=== PATIENT | female | born 1980 | race Caucasian/White ===

== ENCOUNTER 2017-12-26 17:31 | Outpatient (CLI) | payer BC, MEDICAID ==
[2017-12-26 19:46] LABS: RUPTURE FETAL MEMBRANES NEGATIVE (NEGATIVE)
== END 2017-12-26 20:10 | disposition home or self-care (01) ==
LOC: OBT 17:31 → L-D 17:32 → OBT 20:10
DX: O42.913 Preterm premature rupture of membranes, unspecified as to length of time between rupture and onset of labor, third trimester (principal); Z3A.31 31 weeks gestation of pregnancy
CPT/HCPCS: 76818; 84112

== ENCOUNTER 2018-02-21 10:34 | Inpatient (IN) | payer BC ==
[2018-02-21] MEDS: DEXTROSE 5%-LR 1,000 ML IV (11:58)
[2018-02-21] MEDS ORDERED: LIDOCAINE 1% (MPF) 30 ML INJ INJ (12:00)
[2018-02-21] MEDS ORDERED: BUTORPHANOL 2 MG INJ IV (12:00)
[2018-02-21] MEDS ORDERED: METHYLERGONOVINE 0.2 MG INJ IM ×2 (12:00→22:00)
[2018-02-21] MEDS ORDERED: CARBOPROST 250 MCG INJ IM ×2 (12:00→22:00)
[2018-02-21] MEDS ORDERED: MISOPROSTOL 200 MCG TAB PR ×2 (12:00→22:00)
[2018-02-21] MEDS ORDERED: IBUPROFEN 600 MG TAB PO (12:00)
[2018-02-21] MEDS ORDERED: OXYTOCIN 30 UNITS/LR 500 ML IV ×4 (12:00→22:00)
[2018-02-21 12:29] LABS: ADD MAN DIFF? NO
[2018-02-21 12:33] LABS: WHITE BLOOD COUNT 6.2 10^3/ul (4.8-10.8)
[2018-02-21 12:33] LABS: BASOPHILS % 0.5 % (0.0-2.0); EOSINOPHILS % 0.5 % (0.0-7.0); HEMATOCRIT 38.7 % (37.0-47.0); HEMOGLOBIN 13.2 g/dl (12.0-16.0); LYMPHOCYTES % 32.8 % (15.0-51.0); MEAN CORPUSCULAR HEMOGLOBIN 32.8 pg (29.0-33.0); MEAN CORPUSCULAR HGB CONC 34.1 g/dl (32.0-37.0); MEAN PLATELET VOLUME 11.9 fl (7.4-10.4); MONOCYTE # 0.6 10^3/ul (0.3-0.9); MONOCYTES % 9.9 % (0.0-11.0); NEUTROPHIL # 3.4 10^3/ul (1.6-7.5); NUCLEATED RED BLOOD CELLS% 0.5 /100WBC (0.0-0.0); PLATELET COUNT 190 10^3/UL (140-415); RED BLOOD COUNT 4.03 10^6/ul (4.20-5.40); RED CELL DISTRIBUTION WIDTH 13.2 % (11.5-14.5)
[2018-02-21 12:53] LABS: INR 0.79; PROTIME 11.1 Sec (11.9-14.9); PT RATIO 0.9
[2018-02-21 12:54] LABS: PARTIAL THROMBOPLASTIN TIME 29.5 Sec (23.0-35.0)
[2018-02-21 13:22] LABS: HEPATITIS B SURFACE ANTIGEN NEGATIVE (NEGATIVE)
[2018-02-21 15:11] LABS: RAPID PLASMA REAGIN NONREACTIVE (NR)
[2018-02-21] MEDS: LACTATED RINGER'S 1,000 ML IV ×2 (16:21→20:32)
[2018-02-21] MEDS ORDERED: CEFAZOLIN 2 GM/50 ML (PMX) 50 ML IVPB (16:30)
[2018-02-21] MEDS ORDERED: NALBUPHINE HCL (10 MG/1 ML) INJ IV (18:30)
[2018-02-21] MEDS ORDERED: DIPHENHYDRAMINE 50 MG INJ IV ×2 (18:30)
[2018-02-21] MEDS ORDERED: NALOXONE (0.4 MG/ML) INJ IV (18:30)
[2018-02-21] MEDS ORDERED: FENTAnyl 50 MCG/ML VIAL IV ×2 (18:30)
[2018-02-21] MEDS ORDERED: HYDROmorphONE 0.5 MG/0.5 ML SYG IV ×2 (18:30)
[2018-02-21] MEDS ORDERED: HYDROmorphONE 1 MG/5 ML IV SYRINGE IV ×3 (18:30)
[2018-02-21] MEDS ORDERED: KETOROLAC 30 MG INJ IV (18:30)
[2018-02-21] MEDS ORDERED: ZOLPIDEM 5 MG TAB PO (18:30)
[2018-02-21] MEDS ORDERED: ONDANSETRON 4 MG INJ IV ×2 (18:30)
[2018-02-21] MEDS: FAMOTIDINE 20 MG INJ IV (18:30)
[2018-02-21] MEDS ORDERED: CITRIC ACID/NA CITRATE 30 ML CUP (20:00)
[2018-02-21] MEDS: METOCLOPRAMIDE 10 MG INJ IV (20:31)
[2018-02-21] MEDS: ONDANSETRON 4 MG INJ IV (20:31)
[2018-02-21] MEDS ORDERED: morphine SULFATE/PF (10 MG/10 ML) INJ (20:53)
[2018-02-21] MEDS ORDERED: OXYTOCIN 10 UNIT INJ (21:23)
[2018-02-21] MEDS ORDERED: NACL 0.9% 3 ML SYG IV (22:00)
[2018-02-21] MEDS: OXYTOCIN 30 UNITS/LR 500 ML IV (23:01)
[2018-02-22] MEDS: OXYTOCIN 30 UNITS/LR 500 ML IV (00:24)
[2018-02-22] MEDS: CEFAZOLIN 2 GM/50 ML (PMX) 50 ML IVPB ×4 (03:11→19:46)
[2018-02-22 07:43] LABS: ADD MAN DIFF? NO
[2018-02-22 07:52] LABS: WHITE BLOOD COUNT 12.9 10^3/ul (4.8-10.8)
[2018-02-22 07:52] LABS: BASOPHILS % 0.2 % (0.0-2.0); EOSINOPHILS % 0.1 % (0.0-7.0); HEMATOCRIT 33.1 % (37.0-47.0); HEMOGLOBIN 11.8 g/dl (12.0-16.0); LYMPHOCYTES # 2.3 10^3/ul (0.8-2.9); LYMPHOCYTES % 17.7 % (15.0-51.0); MEAN CORPUSCULAR HEMOGLOBIN 33.7 pg (29.0-33.0); MEAN CORPUSCULAR HGB CONC 35.6 g/dl (32.0-37.0); MEAN CORPUSCULAR VOLUME 94.6 fl (82.0-101.0); MEAN PLATELET VOLUME 11.3 fl (7.4-10.4); MONOCYTE # 1.1 10^3/ul (0.3-0.9); MONOCYTES % 8.6 % (0.0-11.0); NEUTROPHIL # 9.4 10^3/ul (1.6-7.5); NEUTROPHILS % 72.8 % (39.0-77.0); PLATELET COUNT 172 10^3/UL (140-415)
[2018-02-22] MEDS: LACTATED RINGER'S 1,000 ML IV ×2 (11:56→21:18)
[2018-02-22] MEDS: KETOROLAC 30 MG INJ IV (18:00)
[2018-02-23] MEDS: IBUPROFEN 600 MG TAB PO ×4 (00:33→17:54)
[2018-02-24] MEDS: IBUPROFEN 600 MG TAB PO ×4 (00:15→17:40)
== END 2018-02-24 21:05 | disposition home or self-care (01) | DRG 787 ==
LOC: PP1 02-22 01:05 → OBT 10:34 → L-D 10:45
PROVIDERS: Obstetrics & Gynecology
PROC: 10D00Z1 Extraction of Products of Conception, Low, Open Approach (ICD-10-PCS; principal; 2018-02-21 20:45)
DX: O98.52 Other viral diseases complicating childbirth (principal); A92.5 Zika virus disease; O36.63X0 Maternal care for excessive fetal growth, third trimester, not applicable or unspecified; O76 Abnormality in fetal heart rate and rhythm complicating labor and delivery; O66.0 Obstructed labor due to shoulder dystocia; Z3A.39 39 weeks gestation of pregnancy; Z37.0 Single live birth
CPT/HCPCS: 76815; 76818; 85025; 85610; 85730; 86592; 86850; 86900; 86901; 87340; 88307; 99464

== ENCOUNTER 2018-10-18 09:31 | Day surgery (SDC) | payer BC ==
[2018-10-18] MEDS ORDERED: CEFAZOLIN 1 GM INJ (10:11)
[2018-10-18] MEDS ORDERED: LIDOCAINE 2% (SDV) 5 ML INJ (10:11)
[2018-10-18] MEDS ORDERED: PROPOFOL 20 ML (10:11)
[2018-10-18] MEDS ORDERED: FENTAnyl 50 MCG/ML VIAL (10:11)
[2018-10-18] MEDS: LACTATED RINGER'S 1,000 ML IV (10:30)
[2018-10-18] MEDS ORDERED: METOCLOPRAMIDE 10 MG INJ (11:32)
[2018-10-18] MEDS ORDERED: ONDANSETRON 4 MG INJ (11:32)
[2018-10-18] MEDS ORDERED: FAMOTIDINE 20 MG INJ (11:32)
[2018-10-18] MEDS ORDERED: DEXAMETHASONE 4 MG/ML 5 ML INJ (11:32)
[2018-10-18] MEDS ORDERED: NEOMYC/POLYMYX/BACIT 30 GM OINT (11:41)
[2018-10-18] MEDS: ROPIVACAINE 0.5 % 30 ML VIAL (11:46)
[2018-10-18] MEDS ORDERED: KETOROLAC 30 MG INJ (11:55)
[2018-10-18] MEDS ORDERED: HYDROmorphONE 1 MG/5 ML IV SYRINGE IV ×3 (12:00)
[2018-10-18] MEDS: KETOROLAC 30 MG INJ IV (12:00)
[2018-10-18] MEDS ORDERED: morphine 2 MG INJ IV (12:00)
[2018-10-18] MEDS ORDERED: ONDANSETRON 4 MG INJ IV (12:00)
[2018-10-18] MEDS ORDERED: MEPERIDINE 25 MG INJ IV (12:00)
[2018-10-18] MEDS ORDERED: OXYCODONE/ACETAMINOPHEN (5/325) TAB PO ×2 (12:00)
[2018-10-18] MEDS: POLYMYXIN/BACITRACIN 1L IRRIG IRR (12:11)
[2018-10-18] MEDS ORDERED: ACETAMINOPHEN 1000MG/100ML IV 100 ML IVPB (13:00)
== END 2018-10-18 15:45 | disposition home or self-care (01) ==
LOC: SDS 09:31
DX: T84.84XD Pain due to internal orthopedic prosthetic devices, implants and grafts, subsequent encounter (principal); Y79.3 Surgical instruments, materials and orthopedic devices (including sutures) associated with adverse incidents; Y83.8 Other surgical procedures as the cause of abnormal reaction of the patient, or of later complication, without mention of misadventure at the time of the procedure; L90.5 Scar conditions and fibrosis of skin; L91.0 Hypertrophic scar; S93.422D Sprain of deltoid ligament of left ankle, subsequent encounter; X58.XXXD Exposure to other specified factors, subsequent encounter
CPT/HCPCS: 20680; 73610; 82306; 88300